=== PATIENT | female | born 1955 | race Asian ===

== ENCOUNTER 2017-10-12 08:43 | Emergency (ER) | payer BC ==
--- NOTE | 2017-10-12 11:45 | RAD ---
RIGHT FOREARM TWO VIEWS: HISTORY: A 62-year-old female with a history of a right forearm injury after slipping and falling on steps. FINDINGS: There is a comminuted fracture of the distal radius with some dorsal angulation and foreshortening an d resultant deformity. The remainder of the forearm appears intact. A follow-up four view wrist exa mination might give additional information. Evidence for an ulnar styloid process fracture. IMPRESSION: Comminuted distal radial fracture with dorsal angulation and foreshortening, as well as an ulnar styl oid process fracture. Follow-up four view examination of the wrist shoulder be considered. POS: GLORIA
== END 2017-10-12 10:53 | disposition home or self-care (01) ==
LOC: SCSER 08:43
DX: S52.501A Unspecified fracture of the lower end of right radius, initial encounter for closed fracture (principal); W18.30XA Fall on same level, unspecified, initial encounter
CPT/HCPCS: 29075

== ENCOUNTER 2017-10-22 07:02 | Day surgery (SDC) | payer BC ==
[2017-10-21 09:51] VITALS: BMI 20.5
[2017-10-22 08:09] LABS: #Basophils 0.1 thou/uL (0.0-0.2); #Eosinphils 0.2 thou/uL (0.0-0.7); #Lymphocytes 1.8 thou/uL (1.20-3.40); #Monocytes 0.4 thou/uL (0.11-0.59); #Neutrophils 3.1 thou/uL (1.40-6.50); %Basophils 1.6 % (0.0-1.0); %Eosinophils 2.9 % (0.0-10.0); %Lymphocytes 32.8 % (21.0-51.0); %Monocytes 6.4 % (0.0-10.0); %Neutrophils 56.3 % (42.0-75.0); Hemoglobin 13.3 g/dL (12.0-16.0); Mean Corpuscular HGB CONC 33.2 g/dL (32.0-36.0); Mean Corpuscular Hemoglobin 29.4 pg (27.0-31.0); Mean Corpuscular Volume 88.5 fL (78.0-98.0); Mean Platelet Volume 8.4 fL (7.4-10.4); Platelet Count 182 thou/uL (130-400); RBC Distribution Width 12.3 % (11.5-14.5); Red Blood Cell (RBC) Count 4.53 mill/uL (4.20-5.40); White Blood Cell (WBC) Count 5.5 thou/uL (4.8-10.8)
[2017-10-22] MEDS ORDERED: Ondansetron HCl/PF 4 MG/2 ML Vial IVP PRN (08:47)
[2017-10-22] MEDS ORDERED: HYDROcodone/Acetaminophen 10/325 mg Tablet PO PRN ×2 (08:47)
[2017-10-22] MEDS ORDERED: traMADol HCl 50 MG TAB PO PRN ×2 (08:47)
[2017-10-22] MEDS ORDERED: Ketorolac Tromethamine 30 MG/ML VIAL IVP PRN (08:47)
[2017-10-22] MEDS ORDERED: Zolpidem Tartrate 5 MG TAB PO PRN (08:47)
[2017-10-22] MEDS ORDERED: Promethazine HCl 25 MG/ML VIAL IM PRN (08:47)
[2017-10-22] MEDS ORDERED: Ropivacaine HCl/PF 1,100 MG in Sodium Chloride 0.9% 440 ML NERVE BLCK SCH (08:47)
[2017-10-22] MEDS ORDERED: Fentanyl 100 MCG/2 ML VIAL IV PRN (08:48)
[2017-10-22] MEDS ORDERED: Ropivacaine 0.5% HCl/PF (150 MG/30 ML VIAL) ONE (09:53)
[2017-10-22] MEDS ORDERED: Ropivacaine 0.2% HCl/PF (40 MG/20 ML VIAL) ONE (09:53)
[2017-10-22] MEDS ORDERED: Ondansetron HCl/PF 4 MG/2 ML Vial ONE (09:57)
[2017-10-22] MEDS ORDERED: PROPOFOL 200 MG/20 ML VIAL ONE (09:57)
[2017-10-22] MEDS ORDERED: Lidocaine 1% PF 5 ML VIAL ONE (09:57)
--- NOTE | 2017-10-22 10:59 | RAD ---
INTRAOPERATIVE FLUOROSCOPY: HISTORY: ORIF right wrist. COMPARISON: None. EXPOSURE: 49.4 seconds 1.28 mGy FINDINGS: Four intraoperative fluoroscopic images demonstrate placement of a plate with screws traversing the d istal radius. Fracture lucency is identified. Alignment is near anatomic. Note is made of an ulnar styloid fracture. Of note, fracture lucency extends to the articular surfac e of the distal radius. IMPRESSION: Fluoroscopy as above. POS: GLORIA
--- NOTE | 2017-10-22 11:09 | OP ---
DATE OF PROCEDURE: 10/22/2017 PREOPERATIVE DIAGNOSIS: Right distal radius fracture. POSTOPERATIVE DIAGNOSIS: Right distal radius fracture, Colles with intraarticular split sagittal plane. PROCEDURE PERFORMED: 1. Open reduction internal fixation right distal radius fracture. 2. Short arm splint. STAFF: Ruben Arndt M.D. QM NURSE: MERE Fritz ANESTHESIA: Darryl. The patient received a LMA with an interscalene. ESTIMATED BLOOD LOSS: 30 mL. TOURNIQUET TIME: 41 minutes at 250 mmHg. IMPLANTS: A [employer] 6-hole 2.4 FCT volar distal radius plate with three 2-7 cortical screws and four 2-4 locking screws. ANTIBIOTICS: Ancef 2 grams. COMPLICATIONS: None. HISTORY OF PRESENT ILLNESS: Ms. Jackson is a pleasant 62-year-old female who fell from a standing height about 7 days ago. She is nurse at the [employer]. The patient has pain. She had what appeared to be extraarticular on x- rays, but on fluoroscopic views was intraarticular fracture in the sagittal plane. I discussed with patient the risks and benefits of a right distal radius fracture, open reduction internal fixation to include pain, scar, bleeding, infection, damage to vital structures, decreased range of motion or strength. I discussed with the patient that patient had greater than 30 degrees of dorsal tilt and I felt that it would be better fixed given her function level, age and hand dominant. We discussed risks and benefits and elected to proceed. PROCEDURE NOTE: A timeout was performed designating the patient's right upper extremity as the operative site based on site, consents and markings. Tourniquet was brought up a total of 41 minutes. I made an incision over the FCR, dissected out the FCR. Came down, cut on top of the fascia, pulled the flexor pollicis longus ulnarly, came down on the patient's plantar quadratus, split the pronator quadratus, came down to expose her fracture plane using a elevator to elevate proximally and distally and a curet and clean off the bone to help with exposure, placed our plate, helped with reduction. I looked on radiographs, I liked the position. We then screwed into position. We shifted a little bit distally and we pressed, we put a 14 in because we felt like better purchase forward, ultimately switched back to a 12. We then reduced the fracture under fluoroscopic guidance. Sagital split and felt like with the reduction, I had that I may be 1 mm step-off in the sagittal split, but overall looked good. We pinned 2 K-[address]ires in place to hold it in position. I then held the reduction as we drilled the 2 central screws distally down to 22 and placed 20 mm screws in both central holes. We then placed our styloid screw and drilled and placed a 14 and we placed our most ulnar screw and a 20, we assured that we were extraarticular. We saw that we were not extraarticular, we had a good reduction. I looked on AP all 4 views. We then moved proximally placed 2 more 2.7 screws 12 and moved our 14 back to 12, total of 7 screws. Washed, took final x-rays, AP, PA, lateral and an ulnar deviated lateral and about 15 degrees,looked at the joint surface and were not out We then washed, the pronator quadratus was not closeable, we just closed the subcu 2-0 and skin. I placed the patient in a short arm dressing. Let the tourniquet down after 40 minutes. Placed a short arm splint. The patient will be followed up in 10-14 days. She was given tramadol as needed for pain and I gave her some hydrocodone for breakthrough pain. She will follow up me in about 10-14 days. BRET
== END 2017-10-22 12:47 | disposition home or self-care (01) ==
LOC: SDC 07:02
PROVIDERS: ATTEND Orthopaedic Surgery
PROC: 0PSH04Z Reposition Right Radius with Internal Fixation Device, Open Approach (ICD-10-PCS; principal; 2017-10-22)
DX: S52.531A Colles' fracture of right radius, initial encounter for closed fracture (principal); W01.0XXA Fall on same level from slipping, tripping and stumbling without subsequent striking against object, initial encounter
CPT/HCPCS: 76001; 85025; C1713; J2001; J2405; J2704; J2795; J7050

== ENCOUNTER 2017-11-25 07:58 | Outpatient (CLI) | payer BC | END 2017-11-25 07:59 | disposition home or self-care (01) | LOC: BICMAMMO 07:58 | PROVIDERS: ATTEND Family Medicine | DX: Z12.31 Encounter for screening mammogram for malignant neoplasm of breast (principal) | CPT/HCPCS: 77063; 77067 ==

== ENCOUNTER 2019-12-16 12:45 | Outpatient (CLI) | payer BC ==
--- NOTE | 2019-12-16 17:06 | MMO ---
Bilateral MAMMO Bilat Screen [facility]. CLINICAL HISTORY: Patient is 64 years old and is seen for screening. The patient has no family history of breast cancer. The patient has no personal history of cancer. The patient has a history of left Cyst Aspiration at age 33. VIEWS: The views performed were: bilateral craniocaudal with tomosynthesis and bilateral mediolateral oblique with tomosynthesis. FILMS COMPARED: The present examination has been compared to prior imaging studies performed at [facility] on 12/05/2018, and at [facility] on 03/23/2009 and 11/25/2017. This study has been interpreted with the assistance of computer-aided detection. MAMMOGRAM FINDINGS: The breasts are heterogeneously dense, which could obscure a lesion on mammography. There are no suspicious masses, suspicious calcifications, or new areas of architectural distortion. IMPRESSION: THERE IS NO MAMMOGRAPHIC EVIDENCE OF MALIGNANCY. A ROUTINE FOLLOW-UP MAMMOGRAM IN 1 YEAR IS RECOMMENDED. THE RESULTS OF THIS EXAM WERE SENT TO THE PATIENT. ACR BI-RADS Category 1 - Negative MAMMOGRAPHY NOTE: 1. A negative mammogram report should not delay a biopsy if a dominant of clinically suspicious mass is present. 2. Approximately 10% to 15% of breast cancers are not detected by mammography. 3. Adenosis and dense breasts may obscure an underlying neoplasm. Reported by: RAVEN MONCADA MD Electonically Signed: [id number]
== END 2019-12-16 12:46 | disposition home or self-care (01) ==
LOC: BICMAMMO 12:45
PROVIDERS: ATTEND Family Medicine
DX: Z12.31 Encounter for screening mammogram for malignant neoplasm of breast (principal)
CPT/HCPCS: 77063; 77067

== ENCOUNTER 2020-12-29 15:04 | Outpatient (CLI) | payer BC | END 2020-12-29 15:05 | disposition home or self-care (01) | LOC: BICMAMMO 15:04 | PROVIDERS: ATTEND Family Medicine | DX: Z12.31 Encounter for screening mammogram for malignant neoplasm of breast (principal) | CPT/HCPCS: 77063; 77067 ==

== ENCOUNTER 2021-03-24 10:22 | Outpatient (CLI) | payer BC ==
[2021-03-24 20:43] LABS: SARS-CoV-2 PCR by NAA Not Detected (NotDetected)
== END 2021-03-24 10:23 | disposition home or self-care (01) ==
LOC: LABBT 10:22
PROVIDERS: ATTEND Internal Medicine Critical Care Medicine
DX: Z01.812 Encounter for preprocedural laboratory examination (principal); Z20.822 Contact with and (suspected) exposure to COVID-19
CPT/HCPCS: U0003; U0005

== ENCOUNTER 2021-03-27 07:33 | Outpatient (CLI) | payer BC ==
[2021-03-27] MEDS ORDERED: Iopamidol 370 76% 100 ML VIAL ONE (09:27)
== END 2021-03-27 07:34 | disposition home or self-care (01) ==
LOC: CT 07:33
PROVIDERS: ATTEND Internal Medicine Critical Care Medicine
DX: R91.8 Other nonspecific abnormal finding of lung field (principal); J90 Pleural effusion, not elsewhere classified; N20.0 Calculus of kidney; N13.30 Unspecified hydronephrosis
CPT/HCPCS: 74177; 82565

== ENCOUNTER 2021-03-29 08:11 | Day surgery (SDC) | payer BC ==
[2021-03-24 14:42] VITALS: BMI 18.3
[2021-03-29 08:24] LABS: #Basophils 0.1 thou/uL (0.0-0.2); #Eosinphils 0.3 thou/uL (0.0-0.7); #Lymphocytes 1.6 thou/uL (1.20-3.40); #Monocytes 0.5 thou/uL (0.11-0.59); #Neutrophils 3.5 thou/uL (1.40-6.50); %Basophils 1.4 % (0.0-1.0); %Eosinophils 4.4 % (0.0-10.0); %Lymphocytes 26.8 % (21.0-51.0); %Monocytes 8.4 % (0.0-10.0); Hemoglobin 13.4 g/dL (12.0-16.0); Mean Corpuscular HGB CONC 33.1 g/dL (32.0-36.0); Mean Corpuscular Hemoglobin 29.9 pg (27.0-31.0); Mean Corpuscular Volume 90.4 fL (78.0-98.0); Mean Platelet Volume 7.6 fL (7.4-10.4); Platelet Count 256 thou/uL (130-400); RBC Distribution Width 12.8 % (11.5-14.5); Red Blood Cell (RBC) Count 4.49 mill/uL (4.20-5.40)
[2021-03-29 08:38] LABS: INR-International Normal Ratio 0.9; Prothrombin Time 12.1 sec (12.0-14.7)
[2021-03-29 08:39] LABS: PTT 30.3 sec (22.9-36.1)
[2021-03-29 10:03] VITALS: BP 115/65; TEMP 97.9
== END 2021-03-29 14:30 | disposition home or self-care (01) ==
LOC: CT 08:11
PROVIDERS: ATTEND Internal Medicine Critical Care Medicine
PROC: 0BBF3ZX Excision of Right Lower Lung Lobe, Percutaneous Approach, Diagnostic (ICD-10-PCS; principal; 2021-03-29)
DX: C34.31 Malignant neoplasm of lower lobe, right bronchus or lung (principal); E11.9 Type 2 diabetes mellitus without complications; Z86.16 Personal history of COVID-19; Z79.84 Long term (current) use of oral hypoglycemic drugs
CPT/HCPCS: 32408; 71045; 77012; 85025; 85610; 85730; 88305; 88333; 88341; 88342

== ENCOUNTER 2021-04-14 11:00 | Outpatient (CLI) | payer BC | END 2021-04-14 11:01 | disposition home or self-care (01) | LOC: PET 11:00 | PROVIDERS: ATTEND Internal Medicine Hematology & Oncology | DX: C34.81 Malignant neoplasm of overlapping sites of right bronchus and lung (principal); J90 Pleural effusion, not elsewhere classified; C34.31 Malignant neoplasm of lower lobe, right bronchus or lung; R91.8 Other nonspecific abnormal finding of lung field; R59.0 Localized enlarged lymph nodes | CPT/HCPCS: 78815; A9552 ==

== ENCOUNTER 2021-07-18 11:00 | Outpatient (CLI) | payer BC | END 2021-07-18 11:01 | disposition home or self-care (01) | LOC: PET 11:00 | PROVIDERS: ATTEND Internal Medicine Hematology & Oncology | DX: C34.81 Malignant neoplasm of overlapping sites of right bronchus and lung (principal) | CPT/HCPCS: 78815; A9552 ==

== ENCOUNTER 2021-10-27 09:30 | Outpatient (CLI) | payer BC | END 2021-10-27 09:31 | disposition home or self-care (01) | LOC: PET 09:30 | PROVIDERS: ATTEND Internal Medicine Hematology & Oncology | DX: C34.81 Malignant neoplasm of overlapping sites of right bronchus and lung (principal); C78.01 Secondary malignant neoplasm of right lung; C78.02 Secondary malignant neoplasm of left lung | CPT/HCPCS: 78815; A9552 ==

== ENCOUNTER 2022-01-02 08:19 | Outpatient (CLI) | payer BC | END 2022-01-02 08:20 | disposition home or self-care (01) | LOC: BICMAMMO 08:19 | PROVIDERS: ATTEND Family Medicine | DX: Z12.31 Encounter for screening mammogram for malignant neoplasm of breast (principal); Z98.890 Other specified postprocedural states | CPT/HCPCS: 77063; 77067 ==

== ENCOUNTER 2022-05-22 09:33 | Outpatient (CLI) | payer BC ==
[~2022-05-22 09:33] MED LIST: Iopamidol-370 76% 500 ML 1 ML ONE
== END 2022-05-22 09:34 | disposition home or self-care (01) ==
LOC: BICCT 09:33
PROVIDERS: ATTEND Internal Medicine Hematology & Oncology
DX: C34.81 Malignant neoplasm of overlapping sites of right bronchus and lung (principal); R91.8 Other nonspecific abnormal finding of lung field; J90 Pleural effusion, not elsewhere classified
CPT/HCPCS: 71260; 74177; 82565; Q9967

== ENCOUNTER 2023-01-17 08:41 | Outpatient (CLI) | payer BC | END 2023-01-17 08:42 | disposition home or self-care (01) | LOC: BICMAMMO 08:41 | PROVIDERS: ATTEND Family Medicine | DX: Z12.31 Encounter for screening mammogram for malignant neoplasm of breast (principal); Z13.820 Encounter for screening for osteoporosis; M81.0 Age-related osteoporosis without current pathological fracture; Z80.3 Family history of malignant neoplasm of breast; Z85.118 Personal history of other malignant neoplasm of bronchus and lung; Z98.890 Other specified postprocedural states | CPT/HCPCS: 77063; 77067; 77080 ==

== ENCOUNTER 2023-02-18 08:28 | Outpatient (CLI) | payer BC ==
[2023-02-18] MEDS ORDERED: Iopamidol 370 76% 100 ML VIAL ONE (09:25)
== END 2023-02-18 08:29 | disposition home or self-care (01) ==
LOC: BICCT 08:28
PROVIDERS: ATTEND Internal Medicine Hematology & Oncology
DX: C34.81 Malignant neoplasm of overlapping sites of right bronchus and lung (principal); R91.8 Other nonspecific abnormal finding of lung field; K59.00 Constipation, unspecified; N28.1 Cyst of kidney, acquired
CPT/HCPCS: 71260; 74177; 82565; Q9967

== ENCOUNTER 2023-08-07 07:53 | Outpatient (CLI) | payer BC ==
[2023-08-07 09:12] LABS: #Basophils 0.03 10x3/uL (0.0-0.2); #Eosinphils 0.19 10x3/uL (0.0-0.5); #Monocytes 0.48 10x3/uL (0.0-1.1); #Neutrophils 2.58 10x3/uL (1.5-8.4); %Basophils 0.6 % (0.0-2.0); %Eosinophils 4.1 % (0.0-6.0); %Lymphocytes 29.6 % (18.0-47.0); %Monocytes 10.3 % (0.0-10.0); %Neutrophils 55.2 % (40.0-75.0); Hematocrit 36.9 % (34.9-44.5); Hemoglobin 12.1 g/dL (12.0-15.5); Mean Corpuscular HGB CONC 32.8 g/dL (32.0-36.0); Mean Corpuscular Hemoglobin 29.1 pg (27.0-33.0); Mean Corpuscular Volume 88.7 fl (81.6-98.3); Mean Platelet Volume 11.1 fl (7.4-10.4); Platelet Count 184 10x3/uL (150-450); RBC Distribution Width 14.5 % (11.5-14.5); Red Blood Cell (RBC) Count 4.16 10x6/uL (3.90-5.03); White Blood Cell (WBC) Count 4.7 10x3/uL (3.5-10.5)
[2023-08-07 09:26] LABS: Anion Gap 12 mmol/L (10-20); BUN (Urea Nitrogen) 12 mg/dL (9.8-20.1); Calc. Creatinine Clearance 0 mL/min (70-130); Calcium 8.7 mg/dL (7.8-10.44); Carbon Dioxide 27 mmol/L (23-31); Chloride 106 mmol/L (98-107); Estimated GFR 81; Glucose 89 mg/dL (80-115); Sodium 141 mmol/L (136-145)
== END 2023-08-07 07:54 | disposition home or self-care (01) ==
LOC: LABBT 07:53
PROVIDERS: ATTEND Orthopaedic Surgery Hand Surgery
DX: Z01.818 Encounter for other preprocedural examination (principal); S52.614A Nondisplaced fracture of right ulna styloid process, initial encounter for closed fracture; S61.511A Laceration without foreign body of right wrist, initial encounter; M25.849 Other specified joint disorders, unspecified hand; M65.9 Synovitis and tenosynovitis, unspecified
CPT/HCPCS: 80048; 85025; 93005; 93010

== ENCOUNTER 2024-01-28 15:21 | Outpatient (CLI) | payer BC | END 2024-01-28 15:22 | disposition home or self-care (01) | LOC: BICMAMMO 15:21 | PROVIDERS: ATTEND Family Medicine | DX: Z12.31 Encounter for screening mammogram for malignant neoplasm of breast (principal); Z80.3 Family history of malignant neoplasm of breast | CPT/HCPCS: 77063; 77067 ==

== ENCOUNTER 2024-12-28 07:43 | Outpatient (CLI) | payer BC ==
[2024-12-28 08:21] LABS: Estimated GFR - POC 70.0
[2024-12-28] MEDS ORDERED: Iopamidol 370 76% 100 ML VIAL ONE (08:44)
== END 2024-12-28 07:44 | disposition home or self-care (01) ==
LOC: CT 07:43
PROVIDERS: ATTEND Internal Medicine Hematology & Oncology
DX: C34.81 Malignant neoplasm of overlapping sites of right bronchus and lung (principal); R91.8 Other nonspecific abnormal finding of lung field
CPT/HCPCS: 36415; 71260; 74177; 82565; Q9967

== ENCOUNTER 2025-01-29 08:44 | Outpatient (CLI) | payer BC | END 2025-01-29 08:45 | disposition home or self-care (01) | LOC: BICMAMMO 08:44 | PROVIDERS: ATTEND Family Medicine | DX: Z12.31 Encounter for screening mammogram for malignant neoplasm of breast (principal); Z80.3 Family history of malignant neoplasm of breast; Z85.118 Personal history of other malignant neoplasm of bronchus and lung | CPT/HCPCS: 77063; 77067 ==